=== PATIENT | female | born 2000 | race Caucasian/White ===

== ENCOUNTER 2023-05-27 19:08 | Emergency (ER) | payer SELFPAY ==
[~2023-05-27] VITALS: Ht 160 cm; Wt 68.0 kg
[2023-05-27 19:08] VITALS: BP 129/77; PULSE 89; RESP 20; TEMP 98.3; O2SAT 99
[2023-05-27] MEDS ORDERED: OFIRMEV 1000 MG/100 ML IV STA (19:55)
[2023-05-27] MEDS ORDERED: NS 1000ML 1,000 ML IV STA (19:55)
[2023-05-27 20:10] LABS: BILIRUBIN,URINE NEGATIVE (NEGATIVE); LEUKOCYTE ESTERASE ,URINE NEGATIVE (NEGATIVE); NITRATE,URINE NEGATIVE (NEGATIVE); UROBILINOGEN,URINE 0.2 E.U./dL (0.2)
[2023-05-27] MEDS ORDERED: NS 1000ML 1,000 ML ONE (20:11)
[2023-05-27 20:12] LABS: APPEARANCE,URINE CLEAR; UA COLOR YELLOW
[2023-05-27] MEDS ORDERED: OFIRMEV 1000 MG/100 ML 100 ML IV ONE (20:12)
[2023-05-27 20:35] LABS: BASOPHIL % 0.1 % (0.0-0.2); EOSINOPHIL # 0.3 10^3/uL (0.0-0.2); EOSINOPHIL % 2.1 % (0.0-5.0); HEMATOCRIT(ML) 38.5 % (36.0-46.0); HEMOGLOBIN 13.5 g/dL (12.0-15.0); LYMPHOCYTES # 3.21 10^3/uL1 (1.0-4.8); LYMPHOCYTES % 25.9 % (24.0-44.0); MEAN CORP HGB CONCENTRATION 35.1 g/dL (33-36.5); MEAN CORP VOLUME 88.5 fL (78-100); MONOCYTES # 0.9 10^3/uL (0.3-0.8); MONOCYTES % 7.5 % (5.0-12.0); NEUTROPHILS % 64.2 % (41.0-85.0); PLATELET COUNT 218 10^3/uL (150-400); RED BLOOD CELL 4.35 10^6/uL (4.00-5.20); RED CELL DISTRIBUTION WIDTH 12.2 % (11.5-14.5); WHITE BLOOD CELL 12.4 10^3/uL (4.5-11.0)
[2023-05-27 21:00] VITALS: BP 109/75; PULSE 78; RESP 20; O2SAT 98
[2023-05-27 21:00] LABS: +ADD MANUAL DIFF(NO CHRG) NO
[2023-05-27 21:12] LABS: ALBUMIN(ML) 3.3 g/dL (3.4-5.0); ALBUMIN/GLOBULIN RATIO 0.891; BUN/CREATININE RATIO 12.32 (10.0-20.0); CALCIUM 9.2 mg/dL (8.4-10.5); CARBON DIOXIDE 23.7 mmol/L (20.0-32); CREATININE SERUM 0.73 mg/dL (0.59-1.40); EST GFR, NON-AA 98.8 (>/=60); POTASSIUM 3.7 mmol/L (3.6-5.2)
[2023-05-27 22:03] VITALS: BP 124/81; PULSE 102; RESP 20; O2SAT 97
== END 2023-05-27 22:20 | disposition home or self-care (01) ==
LOC: ER 19:08
DX: O99.353 Diseases of the nervous system complicating pregnancy, third trimester (principal); O26.893 Other specified pregnancy related conditions, third trimester; O99.283 Endocrine, nutritional and metabolic diseases complicating pregnancy, third trimester; G43.911 Migraine, unspecified, intractable, with status migrainosus; E86.0 Dehydration; Z88.6 Allergy status to analgesic agent; Z3A.30 30 weeks gestation of pregnancy
CPT/HCPCS: 99285; 96374; 76801; 96361; 76817; 81003; 80053; 85025; 36415; 84702; J7030; J0131